=== PATIENT | male | born 1945 | race Caucasian/White ===

== ENCOUNTER 2020-04-08 10:28 | Outpatient (REF) | payer MEDICARE, SELFPAY | END 2020-04-08 10:29 | disposition home or self-care (01) | LOC: HO.LAB 10:28 | PROVIDERS: Visit Provider Internal Medicine | DX: Z20.828 Contact with and (suspected) exposure to other viral communicable diseases (principal) | CPT/HCPCS: C9803; U0003 ==

== ENCOUNTER 2020-04-20 08:20 | Outpatient (REF) | payer MEDICARE, SELFPAY | END 2020-04-20 08:21 | disposition home or self-care (01) | LOC: HO.LAB 08:20 | PROVIDERS: Visit Provider Internal Medicine | DX: Z20.828 Contact with and (suspected) exposure to other viral communicable diseases (principal) | CPT/HCPCS: C9803; U0003 ==